=== PATIENT | female | born 1945 | race African-American/Black ===

== ENCOUNTER 2020-03-25 20:17 | Emergency (ER) | payer OTHER ==
[2020-03-25 20:35] VITALS: BP 164/98; PULSE 97; TEMP 98.1; BMI 54.9
[2020-03-25] MEDS ORDERED: LIDOCAINE PATCH REMOVAL MC SCH (22:00)
[2020-03-25] MEDS ORDERED: ACETAMINOPHEN 325 MG TABLET (FP) PO ONE (22:23)
[2020-03-25] MEDS ORDERED: ACETAMINOPHEN 325 MG TABLET (FP) ONE (22:59)
[2020-03-25] MEDS ORDERED: METHOCARBAMOL 500 MG TABLET PO ONE (23:09)
[2020-03-25] MEDS ORDERED: LIDOCAINE 5% TOPICAL PATCH TP ONE (23:10)
[2020-03-25] MEDS ORDERED: LIDOCAINE 5% TOPICAL PATCH ONE (23:38)
[2020-03-25] MEDS ORDERED: METHOCARBAMOL 500 MG TABLET ONE (23:38)
== END 2020-03-26 01:12 | disposition home or self-care (01) ==
LOC: JER 20:17
DX: M25.552 Pain in left hip (principal)
CPT/HCPCS: 70450-TC; 72125-TC; 73523-TC-FY; 99285-25